=== PATIENT | male | born 1965 | race Two or more races ===

== ENCOUNTER 2017-11-27 01:23 | Emergency (ER) | payer MEDICAID, OTHER ==
[~2017-11-27] VITALS: Ht 170.2 cm; Wt 88.5 kg
[~2017-11-27 01:23] MED LIST: ATENOLOL25 MG ORAL; IMITREX100 M1 ORAL; NAPROXEN SODIU550 M1 ORAL
[2017-11-27 01:35] VITALS: BP 142/89
[2017-11-27] MEDS ORDERED: Norco 5mg/325mg tab PO ONE (02:00)
[2017-11-27 02:43] VITALS: BP 138/79
[2017-11-27] MEDS ORDERED: IBUPROFEN600 MG ORAL (02:58)
[2017-11-27] MEDS ORDERED: NORCO 5-325 TA1 EACH ORAL (02:58)
[2017-11-27 03:16] VITALS: BP 138/79
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
--- NOTE | 2017-11-27 18:36 | Diagnostic Imaging Report ---
Indication: Pain Technique: XRAY Chest 1v Comparison: None Findings: Heart size within the upper limits for normal. Mediastinal contours are sharp. No focal airspace consolidation, pleural effusion or pneumothorax. No acute osseous abnormality identified. Impression: No radiographic evidence of acute cardiopulmonary disease.
--- NOTE | 2017-11-27 18:37 | Diagnostic Imaging Report ---
Indication: Pain Technique: XRAY Ribs 2v Uni L Comparison: None Findings: No definite/displaced left rib fracture identified. Left lung is clear, without evidence of pleural fluid or pneumothorax. No radiopaque foreign body seen. Impression: No definite/displaced left rib fracture. This corresponds with the [facility] preliminary report.
== END 2017-11-27 03:10 | disposition home or self-care (01) ==
LOC: EMR 01:59
DX: S20.212A Contusion of left front wall of thorax, initial encounter (principal); Y04.2XXA Assault by strike against or bumped into by another person, initial encounter; Y92.89 Other specified places as the place of occurrence of the external cause; Y99.0 Civilian activity done for income or pay; I10 Essential (primary) hypertension
CPT/HCPCS: 71045; 99284